=== PATIENT | male | born 1980 | race Asian ===

== ENCOUNTER 2023-05-05 16:16 | Emergency (ER) | payer MEDICARE, MEDICAID, SELFPAY ==
[2023-05-05 16:54] VITALS: BP 109/68
[2023-05-05 19:56] LABS: Urine Albumin Negative (Neg - Trace); Urine Bilirubin Negative (Negative); Urine Character Clear (Clear); Urine Color Yellow; Urine Glucose Negative (Negative); Urine Ketone Negative (Negative); Urine Leukocyte Negative (Negative); Urine Nitrite Negative (Negative); Urine Occult Blood 3+ (Negative); Urine Urobilinogen 1+ (Neg - 1+)
[2023-05-05 20:04] LABS: Urine Red Blood Cell 30-40 /HPF (0-2); Urine White Cell None Seen /HPF (0-5)
[2023-05-05 20:25] VITALS: BP 109/68
--- NOTE | 2023-05-05 23:09 | ED.GENMED ---
History of Present Illness
General
Chief Complaint: Urinary Symptoms
Source: family
Exam Limitations: none
Time Seen by Provider: 05/05/23 18:07
Nursing documentation reviewed up to this point in time: agreed with
Travel History
Have you had any contact with someone who has COVID-19?: No
Do you have any symptoms of coronavirus? Fever > 100 degrees, chills, cough, shortness of breath, sore throat, loss of taste or smell, muscle aches, or headache?: No
History of Present Illness
History of Present Illness:
Caregiver noted blood in urine yesterday. Concerned that he has a UTI. No fever/chills. Brought to ED by family for eval. No other complaints.
Past History
Past History
ED Past Medical History: Seizures, Psychiatric (MR, developmental delay) and Other (Pneumonia at the age of 18)
ED Past Surgical History: Other (Muscle biopsy, Vagal nerve stimulator was placed for couple of years and was removed 15 years ago.)
Patient has exhibited threatening behavior?: No
Social History
Tobacco: Non-smoker
Alcohol: None
Drug: None
Personal: Single
Living: other (residential facility)
Review of Systems
Review of Systems
Allergies reviewed?: Yes
All Other Systems: ROS reviewed and negative except as documented in HPI and ROS
Constitutional: Reports no symptoms
EENT: Reports no symptoms
Respiratory: Reports no symptoms
Cardiac: Reports no symptoms
ABD/GI: Reports no symptoms
: Reports bleeding
Musculoskeletal: Reports no symptoms
Skin: Reports no symptoms
Neurological: Reports no symptoms
Psychiatric: Reports no symptoms
Phy Exam
General Physical Exam
General Presentation: no apparent distress
General age: appears stated age
General Skin: warm and dry
General Habitus: normal
Gastrointestinal Exam
Gastrointestinal Exam: non tender and soft
Genitourinary Exam Male
Exam Male: circumcised and other (Small abraded area on underside of penis. No active bleeding noted. No blood expressed from penis.)
Musculoskeletal Exam
Musculoskeletal Exam: neuro vasc intact
Skin Exam
Skin Exam: normal color, warm/dry and no rash
Psychiatric Exam
Psychiatric Exam: normal mood/affect
Course
Orders/Labs/Results
Orders:
Orders
05/05/23 19:42
Urinalysis Reflex To Culture Urgent
Date Specimen was Collected: 05/05/23
Time Specimen was Collected: 19:40
Urine Microscopic Reflex Cult Urgent
Urine Culture Urgent
MIRIAM Source: U
Specimen Description:
Date Specimen was Collected: 05/05/23
Time Specimen was Collected: 19:40
Comment: ADD ON
05/05/23 20:19
Add On- LAB Urgent
Tests Added?: Urine C&S
Abnormal Lab Results
05/05/23
19:42
Ur Occult Blood Reflex 3+ A
(Negative)
Urine RBC 30-40 A /HPF
(0-2)
Vital Signs
Initial and Last Documented VS:
Initial Vital Signs
Pulse Resp BP Pulse Ox
65 20 109/68 99
05/05/23 16:54 05/05/23 16:54 05/05/23 16:54 05/05/23 16:54
Last Documented Vital Signs
Pulse Resp BP Pulse Ox
65 20 109/68 99
05/05/23 16:54 05/05/23 16:54 05/05/23 20:25 05/05/23 20:25
*Critical Care Note
Total Time (30-74mins, 75-104mins- exclusive of procedures): Not Applicable
Update Note
Update Note:
Urine neg for UTI. No active bleeding noted in dept. Urine clear yellow. SMall abrasion noted on underside of tip of penis. ?bleeding source? Discussed findings with family. LPatient is discharged home. Father given instructions on s/s to
return to ED. He is agreeable to plan. Given number for urology follow up .
ED Attending Note
-
Portions of this chart may have been created with voice recognition software.� Occasional wrong word or��sound alike� substitutions may have occurred due to the inherent limitations of voice recognition software.
Discharge Plan
Departure
Patient Disposition: Home (Routine Discharge)
Date of Disposition: 05/05/23
Time of Disposition: 20:20
Patient with high blood pressure during this ER visit?: No
Condition: Good
Covid-19: Not Applicable
Discharge Problem:
Hematuria
Instructions: Blood in the Urine (Hematuria), Adult (DC)
Prescriptions:
No Action
acetaminophen [Tylenol] 325 mg Tablet
650 mg PO Q6HPRN PRN (Reason: mild pain)
felbamate [Felbatol] 400 mg Tablet
800 mg PO BID
therapeutic multivitamin Tablet
1 tab PO DAILY
melatonin 3 mg Tablet
3 mg PO HS PRN (Reason: sleep)
dextromethorphan-guaifenesin [Siltussin-DM] 10-100 mg/5 mL Syrup
10 ml PO Q4HPRN PRN (Reason: cough)
zonisamide [Zonegran] 100 mg Capsule
200 mg PO BID
lorazepam 0.5 mg Tablet
1 mg PO DAILYPRN PRN (Reason: prior to ct scan)
ascorbic acid (vitamin C) [Vitamin C] 500 mg Tablet
500 mg PO DAILY
esomeprazole magnesium [Nexium] 40 mg Capsule,Delayed Release(Dr/Ec)
40 mg PO DAILY
fluticasone propionate 50 mcg/actuation [place],Suspension
1 spray INTRANASAL HS
Ensure Liquid
1 ea PO QPM
clobazam [Onfi] 20 mg Tablet
20 mg PO BID
Dulcolax Soft Chews
1 tab PO BIDPRN PRN (Reason: constipation)
polyethylene glycol 3350 17 gram Powder In Packet
17 g PO DAILY Qty: 30 0RF
cefuroxime axetil 500 mg tablet
500 mg PO BID 7 Days Qty: 14 0RF
Referrals:
Jabier Chen MD [Active] - Next open appointment
UNKNOWN - PT DOES,NOT KNOW [Family Provider] -
Interventions
Interventions:
*Risk Screen - Suicide Last Done: 05/05/23 18:31
*General Assessment Last Done: 05/05/23 18:31
*Neglect/Abuse Screening Last Done: 05/05/23 18:31
ED- Fall Risk Assessment Last Done: 05/05/23 18:31
*ED COVID-19 Vaccine History Last Done: 05/05/23 18:31
*Nursing Disposition Last Done: 05/05/23 20:25
ED-Male Genitourinary Assessment Last Done: 05/05/23 18:31
Discharge Date and Time
Discharge Date/Time: 05/05/23 20:26
== END 2023-05-05 20:26 | disposition home or self-care (01) ==
LOC: EMR 16:16
PROVIDERS: Nurse Practitioner; EMERGENCY PHYSICIAN Student in an Organized Health Care Education/Training Program
DX: R31.9 Hematuria, unspecified (principal); S30.812A Abrasion of penis, initial encounter; X58.XXXA Exposure to other specified factors, initial encounter
CPT/HCPCS: 99282; 81003; 81015; 87086

== ENCOUNTER 2023-08-08 10:42 | Emergency (ER) | payer MEDICARE, MEDICAID, SELFPAY ==
[2023-08-08 10:52] VITALS: BP 127/99
--- NOTE | 2023-08-08 11:55 | ED.SKININJ ---
HPI-Injury
General
Chief Complaint: Skin Problem
Time Seen by Provider: 08/08/23 11:12
Travel History
Have you had any contact with someone who has COVID-19?: No
Do you have any symptoms of coronavirus? Fever > 100 degrees, chills, cough, shortness of breath, sore throat, loss of taste or smell, muscle aches, or headache?: No
History of Present Illness-Injury
Initial Injury comments:
Patient is a 42-year-old male with past medical history of intellectual disability and developmental delay and history of seizure disorder here today with father and caregiver for evaluation after the patient sustained a fall just prior to arrival.
Patient was taking his clothes off and accidentally tripped striking his head against the ground. No loss of consciousness. He sustained a laceration just inferiorly and laterally to his left eyebrow. Patient is up-to-date on vaccinations. No
injuries noted elsewhere.
Past History
Past History
ED Past Medical History: Seizures, Psychiatric (MR, developmental delay) and Other (Pneumonia at the age of 18)
ED Past Surgical History: Other (Muscle biopsy, Vagal nerve stimulator was placed for couple of years and was removed 15 years ago.)
Patient has exhibited threatening behavior?: No
Social History
Tobacco: Non-smoker
Alcohol: None
Drug: None
Personal: Single
Living: other (residential facility)
Review of Systems
Review of Systems
All Other Systems: ROS reviewed and negative except as documented in HPI and ROS
Phy Exam
Physical Exam
Physical Exam:
GENERAL: Alert , in no apparent distress
HEAD: There is a small superficial approximately 2 cm in diameter horizontal linear laceration noted just inferiorly and laterally to the left eyebrow, there is no evidence of foreign body, no active bleeding, there is no tenderness around the
laceration, no deformities or step-offs appreciated
EYE: pupils equal and reactive to light, extraocular movements intact, no restrictions, there is no evidence of ocular trauma
NECK: Supple, no significant adenopathy.
ENT: o/p clr, mmm.
CARDIAC: Regular rate and rhythm .
LUNGS: Clear breath sounds bilaterally, no acute respiratory distress, no wheezes/rales/rhonchi
NEUROLOGICAL: Alert and oriented, no focal neuro deficits, moving all extremities
SKIN: Warm and dry, skin intact.
MUSCULOSKELETAL: No edema, well perfused.
Course
Vital Signs
Initial and Last Documented VS:
Initial Vital Signs
Temp Pulse Resp BP Pulse Ox
98.1 F 70 18 127/99 98
08/08/23 10:52 08/08/23 10:52 08/08/23 10:52 08/08/23 10:52 08/08/23 10:52
Last Documented Vital Signs
Temp Pulse Resp BP Pulse Ox
98.1 F 70 18 127/99 98
08/08/23 10:52 08/08/23 10:52 08/08/23 10:52 08/08/23 10:52 08/08/23 10:52
Procedures
Laceration Closure
Left eyebrow, inferior and lateral aspect:
Status of Wound: clean
Size of Wound in cm: 2
Description of Wound Edges: sharp
Preparation: cleaned with saline
Type of Closure: Dermabond-skin glue (3 layers in total)
Additional information:
Achieved good wound approximation. No bleeding.
MDM/Problems Addressed
Differential Diagnosis Includes:
Patient is a 42-year-old male with past medical history of intellectual disability and developmental delay and history of seizure disorder here today with father and caregiver for evaluation of a laceration after the patient sustained a fall just
prior to arrival. Overall, patient appears well. No evidence of ocular injury. No findings of intracranial injury. Patient neurologically intact. Laceration was copiously irrigated and repaired with Dermabond, see procedure note for full details.
Patient tolerated procedure well. Discussed wound care/infection precautions. Recommend supportive care and close follow-up. All questions answered. Stable for discharge.
*Critical Care Note
Total Time (30-74mins, 75-104mins- exclusive of procedures): Not Applicable
ED Attending Note
-
Portions of this chart may have been created with voice recognition software.� Occasional wrong word or��sound alike� substitutions may have occurred due to the inherent limitations of voice recognition software.
Discharge Plan
Departure
Patient Disposition: Home (Routine Discharge)
Date of Disposition: 08/08/23
Time of Disposition: 12:12
Patient with high blood pressure during this ER visit?: No
Condition: Good
Covid-19: Not Applicable
Discharge Problem:
Laceration of left eyebrow
Instructions: Laceration Repair With Glue ED
Prescriptions:
New
acetaminophen [Tylenol] 325 mg tablet
650 mg PO Q6H PRN (Reason: Pain) 3 Days Qty: 24 0RF
No Action
acetaminophen [Tylenol] 325 mg Tablet
650 mg PO Q6HPRN PRN (Reason: mild pain)
felbamate [Felbatol] 400 mg Tablet
800 mg PO BID
therapeutic multivitamin Tablet
1 tab PO DAILY
melatonin 3 mg Tablet
3 mg PO HS PRN (Reason: sleep)
dextromethorphan-guaifenesin [Siltussin-DM] 10-100 mg/5 mL Syrup
10 ml PO Q4HPRN PRN (Reason: cough)
zonisamide [Zonegran] 100 mg Capsule
200 mg PO BID
lorazepam 0.5 mg Tablet
1 mg PO DAILYPRN PRN (Reason: prior to ct scan)
ascorbic acid (vitamin C) [Vitamin C] 500 mg Tablet
500 mg PO DAILY
esomeprazole magnesium [Nexium] 40 mg Capsule,Delayed Release(Dr/Ec)
40 mg PO DAILY
fluticasone propionate 50 mcg/actuation [place],Suspension
1 spray INTRANASAL HS
Ensure Liquid
1 ea PO QPM
clobazam [Onfi] 20 mg Tablet
20 mg PO BID
Dulcolax Soft Chews
1 tab PO BIDPRN PRN (Reason: constipation)
polyethylene glycol 3350 17 gram Powder In Packet
17 g PO DAILY Qty: 30 0RF
cefuroxime axetil 500 mg tablet
500 mg PO BID 7 Days Qty: 14 0RF
Referrals:
UNKNOWN - PT DOES,NOT KNOW [Family Provider] -
Activity Restrictions/Additional Instructions:
You were seen today for evaluation after you sustained a laceration to your left eyebrow.
We cleaned and irrigated your wound.
Your wound was repaired with glue. Keep the glue dry for the first 24 to 48 hours. Afterwards, you may get the glue wet but do not soak the wound.
Keep an eye out for signs of infection, including but not limited to, redness, swelling, pus, drainage, and/or fevers.
Follow-up with your doctor within the next 3 to 5 days for close reevaluation.
Return for any new, worsening, or concerning symptoms.
Interventions
Interventions:
*Risk Screen - Suicide Last Done: 08/08/23 10:52
*General Assessment Last Done: 08/08/23 10:52
*Neglect/Abuse Screening Last Done: 08/08/23 10:52
ED- Fall Risk Assessment Last Done: 08/08/23 12:26
*ED COVID-19 Vaccine History Last Done: 08/08/23 12:26
*Nursing Disposition Last Done: 08/08/23 12:26
ED-Skin Assessment Last Done: 08/08/23 12:31
Discharge Date and Time
Discharge Date/Time: 08/08/23 12:32
Print Language: POLISH
== END 2023-08-08 12:32 | disposition home or self-care (01) ==
LOC: EMR 10:42
PROVIDERS: EMERGENCY PHYSICIAN Student in an Organized Health Care Education/Training Program
DX: S01.112A Laceration without foreign body of left eyelid and periocular area, initial encounter (principal); W01.0XXA Fall on same level from slipping, tripping and stumbling without subsequent striking against object, initial encounter; G40.909 Epilepsy, unspecified, not intractable, without status epilepticus; F79 Unspecified intellectual disabilities
CPT/HCPCS: 99283; 12051

== ENCOUNTER → 2023-08-29 09:42 | Outpatient (REF) | payer MEDICARE, MEDICAID, SELFPAY ==
[2023-08-29 12:46] LABS: % Basophils 0.5 % (0-2); % Immature Granulocytes 0.3 % (0-0.5); % Lymphocytes 38.7 % (20.5-51.1); % Monocytes 8.9 % (1.7-9.3); % Neutrophils 49.6 % (42.2-75.2); Absolute Eosinophils 0.1 10^3/uL (0-0.7); Absolute Lymphocytes 1.5 10^3/uL (1.2-3.4); Absolute Monocytes 0.4 10^3/uL (0.1-0.6); Hematocrit 41.6 % (39.0-52.0); Hemoglobin 13.7 g/dL (13.0-18.0); Mean Corp Hgb Conc. 32.9 g/dL (33.0-37.0); Mean Corpuscular Hgb 33.5 pg (27.0-31.0); Mean Corpuscular Volume 101.7 fL (80.0-94.0); Mean Platelet Volume 9.4 fL (7.4-10.4); Nucleated Red Blood Cells % 0 % (-); Platelet Count 201 10^3/uL (130-400); Red Blood Cell Count 4.09 10^6/uL (4.70-6.10); Red Cell Dist. Width 12.2 % (11.5-14.5); White Blood Cell Count 3.9 10^3/uL (4.8-10.8)
[2023-08-29 13:52] LABS: ALT (SGPT) 28 U/L (0-50); AST (SGOT) 38 U/L (17-59); Albumin 4.4 g/dl (3.5-5.0); Alkaline Phosphatase 73 U/L (38-126); Blood Urea Nitrogen 15 mg/dl (9-20); Calcium 9.5 mg/dl (8.4-10.2); Carbon Dioxide 24 mmol/L (22-30); Chloride 104 mmol/L (98-107); Glucose 85 mg/dl (70-99); HDL Cholesterol 109 mg/dl; LDL Cholesterol, Calculated 83 mg/dl; Potassium 4.1 mmol/L (3.5-5.1); Sodium 137 mmol/L (135-145); Total Bilirubin 0.6 mg/dl (0.2-1.3); Total Cholesterol 203 mg/dl (50-199); Total Protein 7.4 g/dl (6.3-8.2); Triglyceride 55 mg/dl (10-149); Very Low Density Lipoprotein 11 mg/dl (0-30); eGFR > 60.00
[2023-08-29 14:12] LABS: TSH 0.89 uIU/ml (0.47-4.68)
[2023-08-29 15:23] LABS: Urine Albumin Negative (Neg - Trace); Urine Bilirubin Negative (Negative); Urine Character Clear (Clear); Urine Color Yellow; Urine Glucose Negative (Negative); Urine Ketone Negative (Negative); Urine Leukocyte Negative (Negative); Urine Nitrite Negative (Negative); Urine Occult Blood Negative (Negative); Urine Specific Gravity 1.005 (<1.030); Urine Urobilinogen Negative (Neg - 1+)
== END ==
LOC: RAD 09:42
PROVIDERS: ATTENDING PHYSICIAN Specialist; FAMILY PHYSICIAN Internal Medicine
DX: R31.0 Gross hematuria (principal); Z02.89 Encounter for other administrative examinations; Z00.00 Encounter for general adult medical examination without abnormal findings; G40.909 Epilepsy, unspecified, not intractable, without status epilepticus; R31.9 Hematuria, unspecified; Z13.220 Encounter for screening for lipoid disorders; F79 Unspecified intellectual disabilities; Z79.899 Other long term (current) drug therapy
CPT/HCPCS: 36415; 76770; 80053; 80061; 81003; 84443; 85025; 87086; 93005

== ENCOUNTER 2023-10-26 17:43 | Emergency (ER) | payer MEDICARE, MEDICAID, SELFPAY ==
[2023-10-26 17:46] VITALS: BP 105/73
[2023-10-26 19:38] LABS: Urine Albumin Negative (Neg - Trace); Urine Bilirubin Negative (Negative); Urine Character Clear (Clear); Urine Color Yellow; Urine Glucose Negative (Negative); Urine Ketone Negative (Negative); Urine Leukocyte Negative (Negative); Urine Nitrite Negative (Negative); Urine Occult Blood 3+ (Negative); Urine Specific Gravity 1.015 (<1.030); Urine Urobilinogen Negative (Neg - 1+)
[2023-10-26 19:53] LABS: Urine Red Blood Cell 26-30 /HPF (0-2); Urine White Cell 0-2 /HPF (0-5)
--- NOTE | 2023-10-26 20:44 | ED.GENMED ---
History of Present Illness
General
Chief Complaint: Male Genito-Urinary Symptoms
Time Seen by Provider: 10/26/23 18:32
History of Present Illness
History of Present Illness:
43-year-old male with history of developmental delay presents to the emergency department with his in-home communications maintainer for evaluation of hematuria. Blood was noted in the front of his underwear today. The patient offers no complaints. Crossbar Switch Adjuster
denies any possibility of trauma
Past History
Past History
ED Past Medical History: Seizures, Psychiatric (MR, developmental delay) and Other (Pneumonia at the age of 18)
ED Past Surgical History: Other (Muscle biopsy, Vagal nerve stimulator was placed for couple of years and was removed 15 years ago.)
Patient has exhibited threatening behavior?: No
Social History
Tobacco: Non-smoker
Alcohol: None
Drug: None
Personal: Single
Living: other (residential facility)
Review of Systems
Review of Systems
Allergies reviewed?: Yes
All Other Systems: ROS reviewed and negative except as documented in HPI and ROS
Phy Exam
Physical Exam
Physical Exam:
GEN: Well appearing, NAD, WDWN
HEENT: Oral mucosa moist, no scleral icterus
Cardiac: Regular rate
Lung: No respiratory distress, no tachypnea
MSK: No gross deformity or injuries
: Blood at the urethral meatus, no evidence for penile swelling or testicular swelling
Skin: Good color, no pallor or jaundice, no rashes
Neuro: AO x3, moves all extremities freely
Psych: Calm, cooperative
Course
Orders/Labs/Results
Orders:
Orders
10/26/23 19:23
Urinalysis Reflex To Culture Urgent
Date Specimen was Collected: 10/26/23
Time Specimen was Collected: 19:20
Urine Microscopic Reflex Cult Urgent
Urine Culture Urgent
MIRIAM Source: U
Specimen Description:
Date Specimen was Collected: 10/26/23
Time Specimen was Collected: 19:20
Comment: ADD ON
10/26/23 19:58
CT Abd/pel Without Iv Or Oral Urgent
Comment:
Reason For Exam: hematuria
10/26/23 21:35
Add On - Microbiology Urgent
Tests Added?: urine culture
Abnormal Lab Results
10/26/23
19:23
Ur Occult Blood Reflex 3+ A
(Negative)
Urine RBC 26-30 A /HPF
(0-2)
Vital Signs
Initial and Last Documented VS:
Initial Vital Signs
Temp Pulse Resp BP Pulse Ox
97.8 F 74 18 105/73 97
10/26/23 17:46 10/26/23 17:46 10/26/23 17:46 10/26/23 17:46 10/26/23 17:46
Last Documented Vital Signs
Temp Pulse Resp BP Pulse Ox
97.8 F 74 18 105/73 97
10/26/23 17:46 10/26/23 17:46 10/26/23 17:46 10/26/23 17:46 10/26/23 17:46
MDM/Problems Addressed
MDM/Problems Addressed:
Hematuria noted on urinalysis, will send for culture although initial UA does not look infected. CT obtained showing no evidence for obstructive uropathy. No antibiotics will be initiated at this time given lack of strong findings on UA.
Recommend outpatient urology follow-up if hematuria does not resolve for cystoscopy
*Critical Care Note
Total Time (30-74mins, 75-104mins- exclusive of procedures): Not Applicable
ED Attending Note
-
Portions of this chart may have been created with voice recognition software.� Occasional wrong word or��sound alike� substitutions may have occurred due to the inherent limitations of voice recognition software.
Discharge Plan
Departure
Patient Disposition: Home (Routine Discharge)
Date of Disposition: 10/26/23
Time of Disposition: 21:36
Patient with high blood pressure during this ER visit?: No
Discharge Problem:
Gross hematuria
Prescriptions:
No Action
acetaminophen [Tylenol] 325 mg Tablet
650 mg PO Q6HPRN PRN (Reason: mild pain)
felbamate [Felbatol] 400 mg Tablet
800 mg PO BID
therapeutic multivitamin Tablet
1 tab PO DAILY
melatonin 3 mg Tablet
3 mg PO HS PRN (Reason: sleep)
dextromethorphan-guaifenesin [Siltussin-DM] 10-100 mg/5 mL Syrup
10 ml PO Q4HPRN PRN (Reason: cough)
zonisamide [Zonegran] 100 mg Capsule
200 mg PO BID
lorazepam 0.5 mg Tablet
1 mg PO DAILYPRN PRN (Reason: prior to ct scan)
ascorbic acid (vitamin C) [Vitamin C] 500 mg Tablet
500 mg PO DAILY
esomeprazole magnesium [Nexium] 40 mg Capsule,Delayed Release(Dr/Ec)
40 mg PO DAILY
fluticasone propionate 50 mcg/actuation [place],Suspension
1 spray INTRANASAL HS
Ensure Liquid
1 ea PO QPM
clobazam [Onfi] 20 mg Tablet
20 mg PO BID
Dulcolax Soft Chews
1 tab PO BIDPRN PRN (Reason: constipation)
polyethylene glycol 3350 17 gram Powder In Packet
17 g PO DAILY Qty: 30 0RF
cefuroxime axetil 500 mg tablet
500 mg PO BID 7 Days Qty: 14 0RF
acetaminophen [Tylenol] 325 mg tablet
650 mg PO Q6H PRN (Reason: Pain) 3 Days Qty: 24 0RF
Referrals:
Collin Romero MD [Active] -
Dima Bianchi MD [Family Provider] -
Activity Restrictions/Additional Instructions:
Because of the blood in the urine is not clear at this time. A urine culture is pending and will result in 2 to 3 days, if this is positive we will call and start antibiotics
Please follow-up with the urologist listed on your paperwork as a camera may need to be inserted into the bladder to determine the source of the bleeding
Interventions
Interventions:
*Risk Screen - Suicide Last Done: 10/26/23 20:03
*General Assessment Last Done: 10/26/23 20:03
*Neglect/Abuse Screening Last Done: 10/26/23 20:03
ED- Fall Risk Assessment Last Done: 10/26/23 22:05
*Nursing Disposition Last Done: 10/26/23 22:05
ED-Male Genitourinary Assessment Last Done: 10/26/23 20:03
Discharge Date and Time
Discharge Date/Time: 10/26/23 22:06
Print Language: AZERI
== END 2023-10-26 22:06 | disposition home or self-care (01) ==
LOC: EMR 17:43
PROVIDERS: Physician Assistant; EMERGENCY PHYSICIAN Emergency Medicine; FAMILY PHYSICIAN Internal Medicine
DX: R31.0 Gross hematuria (principal); R56.9 Unspecified convulsions; F79 Unspecified intellectual disabilities; Z87.01 Personal history of pneumonia (recurrent)
CPT/HCPCS: 99284; 74176; 81003; 81015; 87086

== ENCOUNTER 2023-12-26 22:44 | Inpatient (IN) | payer MEDICARE, MEDICAID, SELFPAY ==
[2023-12-26] VITALS (7 sets, daily range): BP systolic 100–128; BP diastolic 69–93; BMI 22.0
--- NOTE | 2023-12-26 18:41 | ED.GENMED ---
History of Present Illness
General
Chief Complaint: Abnormal Lab Value
Time Seen by Provider: 12/26/23 18:41
History of Present Illness
History of Present Illness:
HPI: Bloody urine for months, wanted to do bladder bx, but Dr. Osorio wanted blood work first which was performed this morning. He was sent here due to abnormal LFTs. He is reportedly at his baseline mental status and is currently nonverbal.
There was worsening weakness as well as decreased oral intake over the past week.
EXAM:
GENERAL: Does not appear to be in any distress, he is interacting with his iPad
HEENT: Slightly dry oral mucosa
CARDIOVASCULAR: No murmurs, normal heart rate, regular rhythm, No chest wall tenderness
PULMONARY: No respiratory distress, breath sounds are clear and equal
ABDOMEN: Soft with no peritoneal signs, no tenderness
NEUROLOGIC: The patient does not appear to have any motor deficits however is nonverbal
PSYCHIATRIC: Nonverbal
EXTREMITIES: Nontender, no edema, moves all extremities equally
SKIN: No rash, no lesions
TIME OF INITIAL ENCOUNTER: 7 PM
NUMBER AND COMPLEXITY OF PROBLEMS ADDRESSED AT THE ENCOUNTER
� Chronic conditions affecting care: Developmental delay, hematuria
� Acute Exacerbation and/or Progression of Chronic Illness: This is an acute problem
� Differential Diagnosis includes: Viral syndrome, cholecystitis, biliary colic, medication related
AMOUNT AND/OR COMPLEXITY OF DATA TO BE REVIEWED AND ANALYZED
� I performed an independent evaluation of and my interpretation is:
EKG:
CT:
X-rays:
Laboratory Studies: Lab work from earlier this morning show a white count of 4.6 which is near baseline, hemoglobin 14.7 which is improved compared to prior, AST 541, ALT 124, alk phos normal, Tylenol level undetected
Other:
� Review of other/old records: Labs from August showed normal transaminases
� Clinical information was obtained by an independent historian: I spoke to staff at his facility at bedside
� Prescriptions/Medications Considered but not given:
� Further testing considered but not performed:
RISK OF COMPLICATIONS AND/OR MORBIDITY OR MORTALITY OF PATIENT MANAGEMENT
� Social determinants of health affecting care: Resides at some sort of long-term care facility in [place]
� Discussion with other providers: I discussed the transaminase elevations with Dr. Matt and she recommends checking CK as well as hepatitis panel. CK markedly elevated.
� Escalation of care including admission/observation vs risk of discharge considered: Patient has new transaminase elevation but normal total bili and normal white count. He has no abdominal tenderness. As CK is markedly
elevated, 2 L of IV fluids have been ordered., Tylenol level undetected. Will admit patient for rhabdomyolysis.
Past History
Past History
ED Past Medical History: Seizures, Psychiatric (MR, developmental delay) and Other (Pneumonia at the age of 18)
ED Past Surgical History: Other (Muscle biopsy, Vagal nerve stimulator was placed for couple of years and was removed 15 years ago.)
Patient has exhibited threatening behavior?: No
Social History
Tobacco: Non-smoker
Alcohol: None
Drug: None
Personal: Single
Living: other (residential facility)
Phy Exam
Physical Exam
Physical Exam:
See HPI
Course
Orders/Labs/Results
Orders:
Orders
12/26/23 18:41
US Abdomen Complete/Upper Urgent
Comment:
Reason For Exam: new transaminase elevation
12/26/23 20:32
Acetaminophen Urgent
Basic Metabolic Panel Urgent
Creatine Phosphokinase Urgent
Hepatitis A IgM Antibody Urgent
Hepatitis B Core Ab, IgM Urgent
Hepatitis B Surface Antibody Urgent
Hepatitis B Surface Antigen Urgent
Hepatitis C Antibody Urgent
Doodz-Vfev-Wjqkywk Urgent
Comment: ADD ON
Magnesium Urgent
Comment: ADD ON
Phosphorus Urgent
Comment: ADD ON
Prothrombin Time Urgent
12/26/23 21:23
Add On- LAB Urgent
Tests Added?: LFTs (repeat tonight; had this am)
12/26/23 21:25
Add On- LAB Urgent
Tests Added?: mg, phos
0.9% Sodium Chloride 1000 ml [Nss] 1,000 ml IV BOLUS
0.9% Sodium Chloride 500 ml [Nss] 500 ml IV BOLUS
Abnormal Lab Results
12/26/23
20:32
BUN 28 H mg/dl
(9-20)
Glucose 101 H mg/dl
(70-99)
Creatine Kinase 9707 H U/L
(55-170)
Acetaminophen < 10 L ug/ml
(10-30)
12/26/23 20:32
Vital Signs
Initial and Last Documented VS:
Initial Vital Signs
Temp Pulse Resp BP Pulse Ox
97.6 F 61 18 102/69 96
12/26/23 18:04 12/26/23 18:04 12/26/23 18:04 12/26/23 18:04 12/26/23 18:04
Last Documented Vital Signs
Temp Pulse Resp BP Pulse Ox
97.6 F 69 11 111/86 97
12/26/23 18:04 12/26/23 21:30 12/26/23 21:30 12/26/23 21:00 12/26/23 21:30
*Critical Care Note
Total Time (30-74mins, 75-104mins- exclusive of procedures): Not Applicable
ED Attending Note
-
Portions of this chart may have been created with voice recognition software.� Occasional wrong word or��sound alike� substitutions may have occurred due to the inherent limitations of voice recognition software.
Discharge Plan
Departure
Prescriptions:
No Action
acetaminophen [Tylenol] 325 mg Tablet
650 mg PO Q6HPRN PRN (Reason: mild pain)
felbamate [Felbatol] 400 mg Tablet
800 mg PO BID
therapeutic multivitamin Tablet
1 tab PO DAILY
zonisamide [Zonegran] 100 mg Capsule
200 mg PO BID
ascorbic acid (vitamin C) [Vitamin C] 500 mg Tablet
500 mg PO DAILY
fluticasone propionate 50 mcg/actuation [place],Suspension
1 spray INTRANASAL HS
Ensure Liquid
1 ea PO QPM
clobazam [Onfi] 20 mg Tablet
30 mg PO BID
polyethylene glycol 3350 17 gram Powder In Packet
17 g PO DAILY Qty: 30 0RF
Referrals:
Dima Bianchi MD [Family Provider] -
Interventions
Interventions:
*Risk Screen - Suicide Last Done: 12/26/23 18:04
*General Assessment Last Done: 12/26/23 18:04
*Neglect/Abuse Screening Last Done: 12/26/23 18:04
ED- Fall Risk Assessment Last Done: 12/26/23 19:02
*ED COVID-19 Vaccine History Last Done: 12/26/23 18:04
Discharge Date and Time
Print Language: [id number]
[2023-12-26 20:54] LABS: INR 1.06; PT 13.6 Sec (11.4-14.6)
[2023-12-26 21:06] LABS: Acetaminophen < 10 ug/ml (10-30); Blood Urea Nitrogen 28 mg/dl (9-20); Calcium 9.3 mg/dl (8.4-10.2); Carbon Dioxide 25 mmol/L (22-30); Chloride 104 mmol/L (98-107); Glucose 101 mg/dl (70-99); Potassium 4.2 mmol/L (3.5-5.1); Sodium 139 mmol/L (135-145); eGFR > 60.00
[2023-12-26 21:16] LABS: Creatine Phosphokinase 9707 U/L (55-170)
[2023-12-26] MEDS: NSS 1000 IV ×2 (21:37→23:57)
[2023-12-26 22:08] LABS: ALT (SGPT) 115 U/L (0-50); AST (SGOT) 400 U/L (17-59); Albumin 4.3 g/dl (3.5-5.0); Alkaline Phosphatase 72 U/L (38-126); Direct Bilirubin 0.3 mg/dl (0.0-0.4); Magnesium 1.9 mg/dl (1.6-2.3); Phosphorus 3.4 mg/dl (2.5-4.5); Total Bilirubin 0.5 mg/dl (0.2-1.3); Total Protein 6.9 g/dl (6.3-8.2)
[2023-12-26] MEDS: NSS 500 IV (22:09)
--- NOTE | 2023-12-26 22:33 | HPS.HSE ---
Family Physician
-
Family Physician: Dima Bianchi
Chief Complaint
-
elevated liver enzymes
History of Present Illness
43-year-old male past medical history of development delay nonverbal at baseline, BPH, seizures, presenting from correction with few isolated episodes of bloody urine over the past few months. He saw Dr. Osorio of urology who wanted to check blood
work before considering bladder biopsy. He was sent in for abnormal LFTs.
History is obtained from patient's mother at bedside who states that patient has been feeling more tired for the past several weeks, eating less.
He has a history of seizure disorder and his last seizure was 4 months ago secondary to fever. He has been on the same seizure medications for several years without any recent changes in the doses.
No smoking or alcohol use.
Medical History
Past Medical History
Past Medical History: Reports Other (development delay nonverbal at baseline, BPH, seizures)
Past Surgical History: Reports None
Social History
Tobacco: Non-smoker
Alcohol: None
Drug: None
Family History
Family History: Not pertinent
Allergies / Home Medications
Allergies reflects when Allergies were last updated in [facility].
Home Medications with original date entered in [facility]
Allergy/Medication List:
Allergies
Allergy/AdvReac Type Severity Reaction Status Date / Time
No Known Allergies Allergy Verified 12/26/23 18:06
Home Medications
acetaminophen 325 mg tablet (Tylenol) 650 mg PO Q6HPRN PRN mild pain/temp >100.4 06/22/22
ascorbic acid (vitamin C) 500 mg tablet (Vitamin C) 500 mg PO DAILY Supplement 06/22/22
clobazam 20 mg tablet (Onfi) 30 mg PO BID Seizures 06/22/22
felbamate 400 mg tablet (Felbatol) 800 mg PO BID Seizures 06/22/22
fluticasone propionate 50 mcg/actuation nasal spray,suspension 1 spray intranasal HS Congestion 06/22/22
therapeutic multivitamin 1 tab PO DAILY Supplement 06/22/22
zonisamide 100 mg capsule (Zonegran) 200 mg PO BID Seizures 06/22/22
polyethylene glycol 3350 17 gram oral powder packet 17 g PO DAILY #30 ea 06/27/22
carboxymethylcellulose sodium 0.5 % eye drops (Refresh Tears) 1 drp BOTH EYES DAILY 12/26/23
clotrimazole 1 % topical cream 1 applic topical BID right ear 12/26/23
dextromethorphan-guaifenesin 10 mg-100 mg/5 mL oral syrup 10 ml PO Q4HPRN PRN cough 12/26/23
melatonin 3 mg tablet 3 mg PO HSPRN PRN sleep 12/26/23
Review of Systems
-
History Source: Patient
A 12 point ROS was completed and negative except as noted: Yes
Constitutional: Reports No Symptoms
EENT: Reports No Symptoms
Respiratory: Reports No Symptoms
Cardiac: Reports No Symptoms
Abdomen/GI: Reports No Symptoms
: Reports No Symptoms
Musculoskeletal: Reports No Symptoms
Skin: Reports No Symptoms
Neurological: Reports No Symptoms
Endocrine: Reports No Symptoms
Hematologic/Lymphatic: Reports No Symptoms
Psych: Reports No Symptoms
Physical Exam
Vital Signs
Vital Signs
Temp Pulse Resp BP Pulse Ox
97.6 F 62 11 118/73 97
12/26/23 18:04 12/26/23 22:15 12/26/23 22:15 12/26/23 22:00 12/26/23 22:00
Physical Exam
General: Well Developed, Well Nourished and No Apparent Distress
HEENT: NormoCephalic, Moist mucous membranes and Atraumatic
Respiratory: Clear
Cardiac: S1/S2 and Regular Rhythm; No Murmur or Rub
GI: Soft, Non Tender, Non Distended and Normal Bowel Sounds; No Organomegaly
Rectal: Deferred by Provider
Musculoskeletal: No Clubbing, No Cyanosis and No Edema
Skin: No Rash
Neuro: Nonfocal/grossly intact
Laboratory Results
-
12/26/23 20:32
Laboratory Results
PT 13.6 Sec (11.4-14.6) 12/26/23 20:32
INR 1.06 12/26/23 20:32
Total Bilirubin 0.5 mg/dl (0.2-1.3) 12/26/23 20:32
AST 400 U/L (17-59) H 12/26/23 20:32
ALT 115 U/L (0-50) H 12/26/23 20:32
Alkaline Phosphatase 72 U/L (38-126) 12/26/23 20:32
Data Reviewed
-
Lab Data: Labs Reviewed by me
Old Records: Reviewed
Impression/Plan
-
IMPRESSION:
PLAN:
# Red urine secondary to rhabdomyolysis unclear etiology
-CK of 9700
-Urinalysis shows +3 occult blood, 26-30 RBC
-IV fluids
-Could possibly be related to seizure medications/dehydration,
# Transaminitis secondary to rhabdomyolysis
-Liver ultrasound shows mild diffuse liver disease
-Hepatitis panel pending
Developmental delay, nonverbal at baseline
BPH
Seizure history
-Continue clobazam
-Continue felbamate
-Continue zonisamide
Full code
DVT prophylaxis�heparin
Pur�ed diet
--- NOTE | 2023-12-27 01:00 | PTCARENOTE ---
pt arrived to floor via stretcher from the ED. Pt with developmental delays, non verbal at baseline, but able to say some words, nods head appropriately, and follows commands. Mother at bedside to assist with admit. HR Reg, lungs clear. POX 98% on
RA. + bowel, round abd. Bladder scanned pt for 735ml. Pt unable to use urinal. Pt OOB x 2 to bathroom, pt able to void sitting on toilet. Pt refusing to wear socks, rips them off. Pt reports abd pain/ tenderness, unable to describe. + pedal pulses
present. skin intact. Left AC int infusing NSS@150ml/hr as ordered. Bed Alarm/ med sitter in place for pt safety. pt sitting up in bed playing on IPAD. Will continue to monitor.
[2023-12-27] MEDS: NSS 1000 IV ×3 (06:01→20:16)
[2023-12-27 07:20] LABS: % Basophils 0.6 % (0-2); % Eosinophils 2.9 % (0-6); % Immature Granulocytes 0.2 % (0-0.5); % Lymphocytes 24.7 % (20.5-51.1); % Monocytes 8.9 % (1.7-9.3); % Neutrophils 62.7 % (42.2-75.2); Absolute Eosinophils 0.2 10^3/uL (0-0.7); Absolute Lymphocytes 1.3 10^3/uL (1.2-3.4); Absolute Monocytes 0.5 10^3/uL (0.1-0.6); Absolute Neutrophils 3.2 10^3/uL (1.4-6.5); Mean Corpuscular Hgb 34.5 pg (27.0-31.0); Mean Corpuscular Volume 98.5 fL (80.0-94.0); Mean Platelet Volume 9.3 fL (7.4-10.4); Nucleated Red Blood Cells % 0 % (-); Platelet Count 174 10^3/uL (130-400); Red Blood Cell Count 4.06 10^6/uL (4.70-6.10); Red Cell Dist. Width 12.1 % (11.5-14.5); White Blood Cell Count 5.2 10^3/uL (4.8-10.8)
[2023-12-27 07:39] VITALS: BP 113/71
[2023-12-27 07:49] LABS: ALT (SGPT) 88 U/L (0-50); AST (SGOT) 259 U/L (17-59); Albumin 3.5 g/dl (3.5-5.0); Alkaline Phosphatase 66 U/L (38-126); Blood Urea Nitrogen 18 mg/dl (9-20); Calcium 8.6 mg/dl (8.4-10.2); Carbon Dioxide 22 mmol/L (22-30); Chloride 109 mmol/L (98-107); Estimated Creatinine Clearance 83 ml/min; Glucose 85 mg/dl (70-99); Potassium 3.7 mmol/L (3.5-5.1); Sodium 142 mmol/L (135-145); Total Bilirubin 0.4 mg/dl (0.2-1.3); eGFR > 60.00
[2023-12-27] MEDS: NON-FORMULARY ITEM 1 UNIT PO (07:54)
[2023-12-27] MEDS: NON-FORMULARY ITEM 800 MG PO ×2 (07:54→20:16)
[2023-12-27] MEDS: MIRALAX 17 GRAMS PO (07:59)
[2023-12-27] MEDS: REFRESH EYE DROPS (PF) 1 DROPS BOTH EYES (07:59)
[2023-12-27] MEDS: THERAGRAN 1 TABLET PO (07:59)
[2023-12-27 08:02] LABS: Creatine Phosphokinase 5816 U/L (55-170)
[2023-12-27] MEDS: VITAMIN C 500 MG PO (08:08)
[2023-12-27] MEDS: NON-FORMULARY ITEM 1.5 UNIT PO ×2 (08:09→20:17)
[2023-12-27] MEDS: HEPARIN 5000 UNITS SC (08:14)
--- NOTE | 2023-12-27 09:04 | W.PN.HOSP.TC ---
Today's Communication/Plan
-
see bold
Assessment / Plan
Assessment / Plan
HPI: 43-year-old male past medical history of development delay nonverbal at baseline, BPH, seizures, presenting from detention with few isolated episodes of bloody urine over the past few months. He saw Dr. Osorio of urology who wanted to check
blood work before considering bladder biopsy. He was sent in for abnormal LFTs.
History is obtained from patient's mother at bedside who states that patient has been feeling more tired for the past several weeks, eating less.
He has a history of seizure disorder and his last seizure was 4 months ago secondary to fever. He has been on the same seizure medications for several years without any recent changes in the doses.
#Acute nontraumatic rhabdomyolysis
Improving, continue IV fluids, trend CK
#Transaminitis
From rhabdomyolysis
Liver ultrasound with diffuse disease, hepatitis panel pending
Improving, avoid hepatotoxic drugs, trend LFTs
Developmental delay, nonverbal at baseline
BPH
Seizure history
-Continue clobazam
-Continue felbamate
-Continue zonisamide
DVT prophylaxis�subcu Lovenox
Full code
Updated mom at bedside 12/26
Total time spent to see the patient on the floor, examine the patient, review data and lab results, discuss treatment plan with patient, nursing staff around 40 minutes.
Physical Exam
General: No acute distress, sleeping
HEENT: Normocephalic, Atraumatic
Respiratory: Clear to Auscultation bilaterally
Cardiac: Normal S1/S2, Regular Rate and Rhythm
GI: Soft, Nontender, Nondistended, Normal Bowel Sounds
Extremities: No Clubbing, Cyanosis, or Edema
Anticipated Discharge: 24 - 48 hours
Subjective/Interval History
-
Date of Service: December 27, 2023
Patient resting quietly. No fever, no vomiting.
Objective Data
-
Labs:
Laboratory Results
12/26/23 12/27/23
20:32 07:00
WBC 5.2
Hgb 14.0
Hct 40.0
Plt Count 174
Sodium 139 142
Potassium 4.2 3.7
Chloride 104 109 H
Carbon Dioxide 25 22
BUN 28 H 18
Creatinine 1.2 0.9
Glucose 101 H 85
Calcium 9.3 8.6
Total Bilirubin 0.5 0.4
AST 400 H 259 H
ALT 115 H 88 H
Alkaline Phosphatase 72 66
Vital Signs:
Vital Signs
Temp Pulse Resp BP Pulse Ox
98.1 F 66 17 113/71 97
12/27/23 07:39 12/27/23 07:39 12/27/23 07:39 12/27/23 07:39 12/27/23 07:39
I&O
12/26/23 12/27/23 12/28/23
06:59 06:59 06:59
Intake Total 900 / 900
Balance 900 / 900
--- NOTE | 2023-12-27 11:25 | CM ---
Patient seen asleep, on medsitter, initial assessment completed by patients mother, Padmini, bedside. Per patients mother, patient resides at [facility] in [place] ([facility] client), has been there for about two
years. Patients mother reports it is not the best home but has been struggling to find a new home. Patients mother reports she cared for patient at home for 40 years, had a hard time caring for him at home. Patients mother confirms PCP Dima
Tash, pharmacy [facility] in [place], confirmed prescription drug coverage. CM placed call to [phone], informed patient is a [facility] becerril- transferred to [facility]. CM spoke with [facility], Martita aGmez
([phone]) confirmed can accept patient upon discharge, requested discharge paperwork faxed to same number as phone ([phone]). CM will continue to follow for all discharge planning needs.
Plan; return to [facility] when stable, please call Martita Gamez ([phone]) upon discharge.
Fax d/c paperwork to [facility]: [phone]
[2023-12-27 15:19] VITALS: BP 108/66
[2023-12-27] MEDS: LOVENOX 40 MG SC (17:02)
[2023-12-27] MEDS: NON-FORMULARY ITEM 2 UNIT PO (20:18)
[2023-12-27 23:21] VITALS: BP 93/59
[2023-12-28] MEDS: NSS 1000 IV ×4 (02:55→23:39)
[2023-12-28 07:15] VITALS: BP 93/61
[2023-12-28 08:28] LABS: ALT (SGPT) 65 U/L (0-50); AST (SGOT) 140 U/L (17-59); Albumin 3.2 g/dl (3.5-5.0); Alkaline Phosphatase 67 U/L (38-126); Blood Urea Nitrogen 18 mg/dl (9-20); Calcium 8.6 mg/dl (8.4-10.2); Carbon Dioxide 23 mmol/L (22-30); Chloride 109 mmol/L (98-107); Estimated Creatinine Clearance 83 ml/min; Glucose 90 mg/dl (70-99); Sodium 139 mmol/L (135-145); Total Bilirubin 0.3 mg/dl (0.2-1.3); Total Protein 5.6 g/dl (6.3-8.2); eGFR > 60.00
--- NOTE | 2023-12-28 08:36 | W.PN.HOSP.TC ---
Today's Communication/Plan
-
see bold
Assessment / Plan
Assessment / Plan
HPI: 43-year-old male past medical history of development delay nonverbal at baseline, BPH, seizures, presenting from skilled nursing with few isolated episodes of bloody urine over the past few months. He saw Dr. Osorio of urology who wanted to check
blood work before considering bladder biopsy. He was sent in for abnormal LFTs.
History is obtained from patient's mother at bedside who states that patient has been feeling more tired for the past several weeks, eating less.
He has a history of seizure disorder and his last seizure was 4 months ago secondary to fever. He has been on the same seizure medications for several years without any recent changes in the doses.
#Acute nontraumatic rhabdomyolysis
CK improving at 2638, down from 5816, was 9707 upon admission
Improving, continue IV fluids, trend CK
#Transaminitis
From rhabdomyolysis
Liver ultrasound with diffuse disease, hepatitis panel pending
Improving, avoid hepatotoxic drugs, trend LFTs
#Hematuria
Appreciate urology input, for possible cystoscopy this admission
Developmental delay, nonverbal at baseline
BPH
Seizure history
-Continue clobazam
-Continue felbamate
-Continue zonisamide
DVT prophylaxis�subcu Lovenox
Full code
Updated mom at bedside 12/26, 12/27
Updated father on phone 12/27
Total time spent to see the patient on the floor, examine the patient, review data and lab results, discuss treatment plan with patient, nursing staff around 50 minutes.
Physical Exam
General: No acute distress
HEENT: Normocephalic, Atraumatic
Respiratory: Clear to Auscultation bilaterally
Cardiac: Normal S1/S2, Regular Rate and Rhythm
GI: Soft, Nontender, Nondistended, Normal Bowel Sounds
Extremities: No Clubbing, Cyanosis, or Edema
Neuro: Slow to respond, answers some questions
Anticipated Discharge: > 48 hours
Subjective/Interval History
-
Date of Service: December 28, 2023
Patient is awake, alert. Reports left wrist pain from his IV site. No fever, no vomiting.
Objective Data
-
Labs:
Laboratory Results
12/28/23
07:11
Sodium 139
Potassium 4.0
Chloride 109 H
Carbon Dioxide 23
BUN 18
Creatinine 0.9
Glucose 90
Calcium 8.6
Total Bilirubin 0.3
AST 140 H
ALT 65 H
Alkaline Phosphatase 67
Vital Signs:
Vital Signs
Temp Pulse Resp BP Pulse Ox
97.3 F 62 18 93/61 99
12/28/23 07:15 12/28/23 07:15 12/28/23 07:15 12/28/23 07:15 12/28/23 07:15
I&O
12/27/23 12/28/23 12/29/23
06:59 06:59 06:59
Intake Total 900 / 900 2160 / 2160
Balance 900 / 900 2160 / 2160
[2023-12-28 08:59] LABS: Creatine Phosphokinase 2638 U/L (55-170)
[2023-12-28] MEDS: MIRALAX 17 GRAMS PO (09:03)
[2023-12-28] MEDS: NON-FORMULARY ITEM 1 UNIT PO ×4 (09:11→19:31)
[2023-12-28] MEDS: NON-FORMULARY ITEM 800 MG PO (09:13)
[2023-12-28] MEDS: REFRESH EYE DROPS (PF) BOTH EYES (09:15)
[2023-12-28] MEDS: VITAMIN C PO (09:16)
[2023-12-28] MEDS: THERAGRAN PO (09:16)
--- NOTE | 2023-12-28 09:30 | CM ---
Patient seen at bedside, family member present. No change to discharge plan. CM will continue to follow for discharge planning needs.
Per prior CM notes; Teletype Clerk, Martita Gamez ([phone]) confirmed can accept patient upon discharge, requested discharge paperwork faxed to same number as phone ([phone]).
Plan; return to [facility] when stable, please call Martita Gamez ([phone]) upon discharge.
Fax d/c paperwork to [facility]: [phone]
--- NOTE | 2023-12-28 14:45 | PTCARENOTE ---
Patient assisted to ambulate into bathroom. Patient voided 1300 ml clear yellow urine into toilet hat. Patient assisted to return to bed. Patient's Mom bedside and functioning bed alarm and Medsitter in place.
[2023-12-28 15:20] VITALS: BP 107/72
[2023-12-28] MEDS: LOVENOX 40 MG SC (18:29)
[2023-12-28 19:12] LABS: Hepatitis B Surface Antigen Negative (Negative)
[2023-12-28 19:15] LABS: Hepatitis A IgM Antibody Negative (Negative); Hepatitis B Core Ab, IgM Negative (Negative)
[2023-12-28] MEDS: NON-FORMULARY ITEM 1 MG PO (19:31)
[2023-12-28 20:43] LABS: Hepatitis C Antibody Negative (Negative)
[2023-12-28] MEDS: ANTIFUNGAL CLEAR 1 APPLIC TOPICAL (21:49)
[2023-12-28 21:50] LABS: Hepatitis B Surface Antibody Indeterminate
[2023-12-28 23:03] VITALS: BP 105/55
[2023-12-29] MEDS: NSS 1000 IV ×4 (05:53→23:47)
[2023-12-29] MEDS: ANTIFUNGAL CLEAR 1 APPLIC TOPICAL ×2 (07:49→20:05)
[2023-12-29 07:50] VITALS: BP 92/65
[2023-12-29] MEDS: MIRALAX 17 GRAMS PO (07:50)
[2023-12-29] MEDS: VITAMIN C 500 MG PO (07:50)
[2023-12-29] MEDS: THERAGRAN 1 TABLET PO (07:50)
[2023-12-29] MEDS: REFRESH EYE DROPS (PF) 1 DROPS BOTH EYES (07:50)
[2023-12-29 07:52] LABS: Hematocrit 37.2 % (39.0-52.0); Hemoglobin 12.6 g/dL (13.0-18.0); Mean Corp Hgb Conc. 33.9 g/dL (33.0-37.0); Mean Corpuscular Volume 97.4 fL (80.0-94.0); Mean Platelet Volume 9.9 fL (7.4-10.4); Platelet Count 188 10^3/uL (130-400); Red Blood Cell Count 3.82 10^6/uL (4.70-6.10); Red Cell Dist. Width 12.1 % (11.5-14.5); White Blood Cell Count 5.9 10^3/uL (4.8-10.8)
[2023-12-29] MEDS: NON-FORMULARY ITEM 1 UNIT PO ×4 (07:59→20:03)
[2023-12-29] MEDS: NON-FORMULARY ITEM 400 MG PO ×2 (08:00→19:58)
[2023-12-29 08:44] LABS: ALT (SGPT) 55 U/L (0-50); AST (SGOT) 91 U/L (17-59); Albumin 3.3 g/dl (3.5-5.0); Alkaline Phosphatase 71 U/L (38-126); Blood Urea Nitrogen 17 mg/dl (9-20); Calcium 8.6 mg/dl (8.4-10.2); Carbon Dioxide 22 mmol/L (22-30); Chloride 107 mmol/L (98-107); Creatine Phosphokinase 1220 U/L (55-170); Estimated Creatinine Clearance 75 ml/min; Glucose 80 mg/dl (70-99); Potassium 3.9 mmol/L (3.5-5.1); Sodium 140 mmol/L (135-145); Total Bilirubin 0.4 mg/dl (0.2-1.3); Total Protein 5.8 g/dl (6.3-8.2); eGFR > 60.00
--- NOTE | 2023-12-29 09:02 | W.PN.HOSP.TC ---
Today's Communication/Plan
-
see bold
Assessment / Plan
Assessment / Plan
HPI: 43-year-old male past medical history of development delay nonverbal at baseline, BPH, seizures, presenting from care home with few isolated episodes of bloody urine over the past few months. He saw Dr. Osorio of urology who wanted to check
blood work before considering bladder biopsy. He was sent in for abnormal LFTs.
History is obtained from patient's mother at bedside who states that patient has been feeling more tired for the past several weeks, eating less.
He has a history of seizure disorder and his last seizure was 4 months ago secondary to fever. He has been on the same seizure medications for several years without any recent changes in the doses.
#Acute nontraumatic rhabdomyolysis
CK improving at 1220, was 2638, down from 5816, was 9707 upon admission
Improving, continue IV fluids, trend CK
#Transaminitis
From rhabdomyolysis
Liver ultrasound with diffuse disease, hepatitis panel pending
Improving, avoid hepatotoxic drugs, trend LFTs
# Intermittent hematuria
Appreciate urology input, for cystoscopy tomorrow
Developmental delay, nonverbal at baseline
BPH
Seizure history
-Continue clobazam
-Continue felbamate
-Continue zonisamide
DVT prophylaxis�subcu Lovenox
Full code
Updated mom at bedside 12/26, 12/27, 12/28
Updated father on phone 12/27
Called patient's PCP to give update 12/28, they did not pecan picker
Total time spent to see the patient on the floor, examine the patient, review data and lab results, discuss treatment plan with patient, nursing staff around 45 minutes.
Physical Exam
General: No acute distress
HEENT: Normocephalic, Atraumatic
Respiratory: Clear to Auscultation bilaterally
Cardiac: Normal S1/S2, Regular Rate and Rhythm
GI: Soft, Nontender, Nondistended, Normal Bowel Sounds
Extremities: No Clubbing, Cyanosis, or Edema
Neuro: Slow to respond, answers some questions
Anticipated Discharge: 24 - 48 hours
Subjective/Interval History
-
Date of Service: December 29, 2023
Patient denies pain. No fever, no vomiting.
Objective Data
-
Labs:
Laboratory Results
12/29/23
06:42
WBC 5.9
Hgb 12.6 L
Hct 37.2 L
Plt Count 188
Sodium 140
Potassium 3.9
Chloride 107
Carbon Dioxide 22
BUN 17
Creatinine 1.0
Glucose 80
Calcium 8.6
Total Bilirubin 0.4
AST 91 H
ALT 55 H
Alkaline Phosphatase 71
Vital Signs:
Vital Signs
Temp Pulse Resp BP Pulse Ox
98.4 F 77 20 92/65 98
12/29/23 07:50 12/29/23 07:50 12/29/23 07:50 12/29/23 07:50 12/29/23 07:50
I&O
12/28/23 12/29/23 12/30/23
06:59 06:59 06:59
Intake Total 2160 / 2160 4580 / 4580
Output Total 1300 / 1300
Balance 2160 / 2160 3280 / 3280
--- NOTE | 2023-12-29 12:00 | CM ---
CM reviewed chart, spoke with Vivek from [facility]. Tyeesha requesting PT/OT to be ordered for patient, TT to Hospitalist with request. [facility] requesting clinicals faxed to [phone] for review to ensure ability to accept patient.
[facility] reports patient requires 24/7 care at residential home, due to staffing, unable to accept a weekend discharge if patient is stable. [facility] requesting fax number- CM provided Case Management fax, [facility] will send discharge requests to CM,
requesting Hospitalist document 'continue all home meds' upon discharge. CM will continue to follow for all discharge planning needs.
Plan; return to [facility] when stable, please call Martita Gamez ([phone]) upon discharge. Watch fo PT/OT evals.
Fax d/c paperwork to [facility]: [phone]
[2023-12-29 15:39] VITALS: BP 80/41
[2023-12-29] MEDS: LOVENOX 40 MG SC (17:03)
[2023-12-29 23:37] VITALS: BP 116/71
[2023-12-30] VITALS (12 sets, daily range): BP systolic 89–117; BP diastolic 52–81
[2023-12-30] MEDS: NSS 1000 IV ×3 (06:14→19:26)
[2023-12-30 07:47] LABS: Hematocrit 42.4 % (39.0-52.0); Hemoglobin 14.5 g/dL (13.0-18.0); Mean Corp Hgb Conc. 34.2 g/dL (33.0-37.0); Mean Corpuscular Hgb 33.3 pg (27.0-31.0); Mean Corpuscular Volume 97.5 fL (80.0-94.0); Platelet Count 185 10^3/uL (130-400); Red Blood Cell Count 4.35 10^6/uL (4.70-6.10); Red Cell Dist. Width 11.9 % (11.5-14.5); White Blood Cell Count 7.3 10^3/uL (4.8-10.8)
[2023-12-30 08:18] LABS: ALT (SGPT) 57 U/L (0-50); AST (SGOT) 77 U/L (17-59); Albumin 3.6 g/dl (3.5-5.0); Alkaline Phosphatase 82 U/L (38-126); Blood Urea Nitrogen 19 mg/dl (9-20); Calcium 8.8 mg/dl (8.4-10.2); Carbon Dioxide 23 mmol/L (22-30); Chloride 105 mmol/L (98-107); Creatine Phosphokinase 914 U/L (55-170); Estimated Creatinine Clearance 83 ml/min; Glucose 81 mg/dl (70-99); Potassium 3.9 mmol/L (3.5-5.1); Sodium 139 mmol/L (135-145); Total Bilirubin 0.4 mg/dl (0.2-1.3); Total Protein 6.2 g/dl (6.3-8.2); eGFR > 60.00
--- NOTE | 2023-12-30 08:37 | W.IMMPOSTOP ---
Surgical Immed Post Op Note
-
Primary Surgeon:
doc
Assisting Surgeon:
Pre-op Diagnosis:
hematuria
Post-op Diagnosis:
same
Procedure Performed:
cysto/retrogrades
Anesthesia Type:
gen
Specimen / Cultures:
none
Estimated Blood Loss:
1cc
Complications:
none
Operative Findings:
no urethra
open prostatic fossa
bladder and retogrades normal
flomax and pyridium today
discharge when medically stable
communicated OR findings to mother
[2023-12-30] MEDS: NON-FORMULARY ITEM 1 UNIT PO ×4 (09:34→19:18)
[2023-12-30] MEDS: NON-FORMULARY ITEM 1 MG PO ×2 (09:35→19:17)
[2023-12-30] MEDS: FLOMAX 0.4 MG PO (09:39)
[2023-12-30] MEDS: THERAGRAN 1 TABLET PO (09:40)
[2023-12-30] MEDS: Pyridium 200 MG PO (09:40)
[2023-12-30] MEDS: VITAMIN C 500 MG PO (09:40)
[2023-12-30] MEDS: MIRALAX 17 GRAMS PO (09:43)
[2023-12-30] MEDS: REFRESH EYE DROPS (PF) BOTH EYES (09:43)
[2023-12-30] MEDS: ANTIFUNGAL CLEAR 1 APPLIC TOPICAL ×2 (10:02→19:27)
--- NOTE | 2023-12-30 10:12 | PTCARENOTE ---
pt went to OR this morning for cystoscopy. Once back in room am medications given and breakfast ordered. DR Do in to see pt and mom. Pt will stay one more night and be discharged home tomorrow.
--- NOTE | 2023-12-30 13:10 | W.PN.HOSP.TC ---
Today's Communication/Plan
-
Discharge tomorrow
Assessment / Plan
Assessment / Plan
HPI: 43-year-old male past medical history of development delay nonverbal at baseline, BPH, seizures, presenting from [facility] with few isolated episodes of bloody urine over the past few months. He saw Dr. Osorio of urology who wanted to check
blood work before considering bladder biopsy. He was sent in for abnormal LFTs.
History is obtained from patient's mother at bedside who states that patient has been feeling more tired for the past several weeks, eating less.
He has a history of seizure disorder and his last seizure was 4 months ago secondary to fever. He has been on the same seizure medications for several years without any recent changes in the doses.
#Acute nontraumatic rhabdomyolysis
CK improving at 914, 1220, was 2638, down from 5816, was 9707 upon admission
Improving, continue IV fluids, trend CK
Plan for discharge home with mom 12/30, then return to the [facility] during the week
#Transaminitis
From rhabdomyolysis
Liver ultrasound with diffuse disease, hepatitis panel pending
Improving, avoid hepatotoxic drugs, trend LFTs
# Intermittent hematuria
Appreciate urology input, 12/29 cystoscopy unremarkable
Developmental delay, nonverbal at baseline
BPH
Seizure history
-Continue clobazam
-Continue felbamate
-Continue zonisamide
DVT prophylaxis�subcu Lovenox
Full code
Updated mom at bedside 12/26, 12/27, 12/28, 12/29
Updated father on phone 12/27
Called patient's PCP to give update 12/28, they did not picking crew supervisor
Total time spent to see the patient on the floor, examine the patient, review data and lab results, discuss treatment plan with patient, nursing staff around 43 minutes.
Physical Exam
General: No acute distress
HEENT: Normocephalic, Atraumatic
Respiratory: Clear to Auscultation bilaterally
Cardiac: Normal S1/S2, Regular Rate and Rhythm
GI: Soft, Nontender, Nondistended, Normal Bowel Sounds
Extremities: No Clubbing, Cyanosis, or Edema
Neuro: Slow to respond, answers some questions
Anticipated Discharge: Within 24 hours
Subjective/Interval History
-
Date of Service: December 30, 2023
Patient seen after his cystoscopy. No fever, no vomiting.
Objective Data
-
Labs:
Laboratory Results
12/30/23
06:30
WBC Pending
Hgb Pending
Hct Pending
Plt Count Pending
Sodium Pending
Potassium Pending
Chloride Pending
Carbon Dioxide Pending
BUN Pending
Creatinine Pending
Glucose Pending
Calcium Pending
Total Bilirubin Pending
AST Pending
ALT Pending
Alkaline Phosphatase Pending
Vital Signs:
Vital Signs
Temp Pulse Resp BP Pulse Ox
98.4 F 84 18 116/71 95
12/29/23 23:37 12/29/23 23:37 12/29/23 23:37 12/29/23 23:37 12/29/23 23:37
I&O
12/29/23 12/30/23 12/31/23
06:59 06:59 06:59
Intake Total 4580 / 4580 1080 / 1080
Output Total 1300 / 1300
Balance 3280 / 3280 1080 / 1080
[2023-12-30] MEDS: LOVENOX 40 MG SC (17:19)
[2023-12-31] MEDS: NSS 1000 IV ×3 (02:26→23:11)
[2023-12-31 03:42] VITALS: BP 80/50
[2023-12-31 07:10] VITALS: BP 109/62
[2023-12-31 07:58] LABS: ALT (SGPT) 55 U/L (0-50); AST (SGOT) 58 U/L (17-59); Albumin 3.3 g/dl (3.5-5.0); Alkaline Phosphatase 62 U/L (38-126); Creatine Phosphokinase 492 U/L (55-170); Direct Bilirubin 0.1 mg/dl (0.0-0.4); Total Bilirubin 0.3 mg/dl (0.2-1.3); Total Protein 5.6 g/dl (6.3-8.2)
--- NOTE | 2023-12-31 08:40 | W.PN.HOSP.TC ---
Today's Communication/Plan
-
Discharge to the care home tomorrow
Assessment / Plan
Assessment / Plan
HPI: 43-year-old male past medical history of development delay nonverbal at baseline, BPH, seizures, presenting from care home with few isolated episodes of bloody urine over the past few months. He saw Dr. Osorio of urology who wanted to check
blood work before considering bladder biopsy. He was sent in for abnormal LFTs.
History is obtained from patient's mother at bedside who states that patient has been feeling more tired for the past several weeks, eating less.
He has a history of seizure disorder and his last seizure was 4 months ago secondary to fever. He has been on the same seizure medications for several years without any recent changes in the doses.
#Acute nontraumatic rhabdomyolysis
CK improving at 492, 914, 1220, was 2638, down from 5816, was 9707 upon admission
Improving, continue IV fluids, trend CK
Discharge to care home tomorrow
#Transaminitis
From rhabdomyolysis
Liver ultrasound with diffuse disease, hepatitis panel pending
Resolving, avoid hepatotoxic drugs, trend LFTs
# Intermittent hematuria
Appreciate urology input, 12/29 cystoscopy unremarkable
Developmental delay, nonverbal at baseline
BPH
Seizure history
-Continue clobazam
-Continue felbamate
-Continue zonisamide
DVT prophylaxis�subcu Lovenox
Full code
Updated mom at bedside 12/26, 12/27, 12/28, 12/29, 12/30
Updated father on phone 12/27
Called patient's PCP to give update 12/28, they did not lease picker
Total time spent to see the patient on the floor, examine the patient, review data and lab results, discuss treatment plan with patient, nursing staff around 38 minutes.
Physical Exam
General: No acute distress
HEENT: Normocephalic, Atraumatic
Respiratory: Clear to Auscultation bilaterally
Cardiac: Normal S1/S2, Regular Rate and Rhythm
GI: Soft, Nontender, Nondistended, Normal Bowel Sounds
Extremities: No Clubbing, Cyanosis, or Edema
Neuro: Slow to respond, answers some questions
Anticipated Discharge: Within 24 hours
Subjective/Interval History
-
Date of Service: December 31, 2023
No acute events. No fever, no vomiting.
Objective Data
-
Labs:
Laboratory Results
12/31/23
06:38
Total Bilirubin 0.3
AST 58
ALT 55 H
Alkaline Phosphatase 62
Vital Signs:
Vital Signs
Temp Pulse Resp BP Pulse Ox
97.5 F 70 18 109/62 95
12/31/23 07:10 12/31/23 07:10 12/31/23 07:10 12/31/23 07:10 12/31/23 07:10
I&O
12/30/23 12/31/23 01/01/24
06:59 06:59 06:59
Intake Total 1080 / 1080 3140 / 3140
Balance 1080 / 1080 3140 / 3140
[2023-12-31] MEDS: THERAGRAN 1 TABLET PO (08:49)
[2023-12-31] MEDS: VITAMIN C 500 MG PO (08:49)
[2023-12-31] MEDS: FLOMAX 0.4 MG PO (08:49)
[2023-12-31] MEDS: NON-FORMULARY ITEM 1 UNIT PO ×4 (08:50→20:06)
[2023-12-31] MEDS: NON-FORMULARY ITEM 1 MG PO (08:50)
[2023-12-31] MEDS: ANTIFUNGAL CLEAR 1 APPLIC TOPICAL ×2 (08:52→20:08)
[2023-12-31] MEDS: MIRALAX 17 GRAMS PO (08:52)
[2023-12-31] MEDS: REFRESH EYE DROPS (PF) BOTH EYES (08:53)
[2023-12-31 14:10] VITALS: BP 156/78; PULSE 77
[2023-12-31 14:45] VITALS: BP 156/78; PULSE 77
[2023-12-31 15:33] VITALS: BP 102/70
--- NOTE | 2023-12-31 16:00 | CM ---
CM reviewed pt with Dr Mac murphy for dc
Initial plan for pt to go home with mother today; however, mother now noting she cannot care for pt at her home this evening
Call with [facility]/long term director who was in agreement plan for home with mom ([phone]) initially
He was updated on change of plans
He requested CM contact long term nurse Vivek [phone] tomorrow to discuss dc planning
He noted Vivek will provide direction if VN vs outpt therapy scripts are needed on dc
Discharge Disposition- return [facility] long term tomorrow
[2023-12-31] MEDS: NSS IV (17:11)
[2023-12-31] MEDS: LOVENOX 40 MG SC (17:22)
[2023-12-31] MEDS: NON-FORMULARY ITEM 400 MG PO (20:05)
[2023-12-31 23:15] VITALS: BP 113/68
[2024-01-01] MEDS: NSS 1000 IV (05:38)
[2024-01-01 07:00] VITALS: BP 118/64
[2024-01-01] MEDS: ANTIFUNGAL CLEAR 1 APPLIC TOPICAL (08:35)
[2024-01-01] MEDS: FLOMAX 0.4 MG PO (08:37)
[2024-01-01] MEDS: NON-FORMULARY ITEM 400 MG PO (08:37)
[2024-01-01] MEDS: MIRALAX PO (08:38)
[2024-01-01] MEDS: NON-FORMULARY ITEM 1 UNIT PO ×2 (08:38→08:39)
[2024-01-01] MEDS: REFRESH EYE DROPS (PF) BOTH EYES ×2 (08:39→08:47)
[2024-01-01] MEDS: VITAMIN C 500 MG PO (08:40)
[2024-01-01] MEDS: THERAGRAN 1 TABLET PO (08:40)
--- NOTE | 2024-01-01 08:44 | W.PN.HOSP.TC ---
Addendum entered and electronically signed by Maryam Houston MD 01/01/24 14:06:
total DC time 38 min
Original Note:
Today's Communication/Plan
-
see A/P
DC today back to [facility]
Assessment / Plan
Assessment / Plan
HPI: 43-year-old male past medical history of development delay nonverbal at baseline, BPH, seizures, presenting from [facility] with few isolated episodes of bloody urine over the past few months. He saw Dr. Osorio of urology who wanted to check
blood work before considering bladder biopsy. He was sent in for abnormal LFTs.
History obtained from patient's mother who stated that patient has been feeling more tired for the past several weeks, eating less.
He has a history of seizure disorder and his last seizure was 4 months ago secondary to fever. He has been on the same seizure medications for several years without any recent changes in the doses.
A/P:
# Acute nontraumatic rhabdomyolysis
CK was 9707 upon admission, improved to 492
continue IV fluids, trend CK
Discharge to [facility]
# Transaminitis, from rhabdomyolysis
Liver ultrasound with diffuse disease
hepatitis panel noted indeterminant hepatitis B surface Ab
avoid hepatotoxic drugs, trend LFTs
# Intermittent hematuria
Appreciate urology input, 12/29 cystoscopy unremarkable
# Developmental delay, nonverbal at baseline
# BPH
# Seizure history
Continue clobazam
Continue felbamate
Continue zonisamide
DVT prophylaxis�subcu Lovenox
Full code
Updated mom at bedside
Physical Exam
General: No acute distress
HEENT: Normocephalic, Atraumatic
Respiratory: Clear to Auscultation bilaterally
Cardiac: Normal S1/S2, Regular Rate and Rhythm
GI: Soft, Nontender, Nondistended, Normal Bowel Sounds
Extremities: No Clubbing, Cyanosis, or Edema
Neuro: Slow to respond, answers some questions
Anticipated Discharge: Today
Subjective/Interval History
-
Date of Service: January 01, 2024
Objective Data
-
Vital Signs:
Vital Signs
Temp Pulse Resp BP Pulse Ox
36.5 C 78 18 113/68 97
12/31/23 23:15 12/31/23 23:15 12/31/23 23:15 12/31/23 23:15 12/31/23 23:15
I&O
12/31/23 01/01/24 01/02/24
06:59 06:59 06:59
Intake Total 3140 / 3140 2200 / 2200
Balance 3140 / 3140 2200 / 2200
Review of Systems
-
Unable to obtain full review of systems at this time due to: Patient Non-verbal
Data Reviewed
-
Labs: Labs Reviewed by me
--- NOTE | 2024-01-01 09:22 | CM ---
Addendum entered by Zenia Cruz 01/01/24 14:57:
CM spoke Vivek several times from [facility], requesting on discharge paperwork to document 'return to previous diet', also requesting [facility] information. CM re-faxed discharge paperwork. IMM reviewed with patients mother, signed, placed in chart.
Addendum entered by Zenia Cruz 01/01/24 10:34:
CM placed call to patients mother, reports facility will provide transportation around 2:00 p.m. CM discussed PT recommendation of home health, patients mother agreeable to referral to [facility]. Patients mother will be here at Hospital prior to
patients discharge.
Original Note:
CM spoke with Vivek from [facility] [place] requesting updated clinicals, PT notes faxed to [phone], requesting the diagnostic code be sent with any new medication to [facility], requesting 'continue all home medications'
documented in discharge summary. TT to Hospitalist with facility request. CM will discuss home health agencies with patient/mother. CM will continue to follow for all discharge planning needs.
Plan; return to [facility]
Fax d/c paperwork to [facility]: [phone]
[2024-01-01] MEDS: AFLURIA (36 mos+) 2024-2025 FORMULA 0.5 ML IM (09:29)
[2024-01-01 09:30] LABS: Creatine Phosphokinase 408 U/L (55-170)
[2024-01-01 12:27] VITALS: BP 107/57
[2024-01-01] MEDS: NSS IV (12:52)
--- NOTE | 2024-01-01 13:47 | W.DCSUMMARY ---
Discharge Summary
Discharge Data
Date of Admission: 12/26/23
Date of Discharge: 01/01/24
-
Pending Results: No
Hospital Course
Principal Diagnosis:
Transaminitis due to from rhabdomyolysis (acute nontraumatic rhabdomyolysis)
Intermittent hematuria
Chronic Diagnoses:�
Developmental delay, nonverbal at baseline
Benign prostate hypertrophy
History of seizure on clobazam, felbamate, zonisamide
Consultations:�
Urology
Procedures:�
12/29 cystoscopy unremarkable
Clinical course:�
This is a 43-year-old male with past medical history as stated above, who presented from his assisted with abnormal blood work (elevated LFT).
He also has been experiencing isolated episodes of bloody urine and follows with Dr Osorio outpatient.
Problem 1:
Transaminitis due to from rhabdomyolysis (acute nontraumatic rhabdomyolysis).
His CK was at 9707 upon admission, which improved to 400 on the day of discharge.
His rhabdomyolysis was treated with IVF.
His LFT also trended down with resolution of his rhabdomyolysis.
His liver ultrasound noted diffuse disease.
His hepatitis panel showed indeterminant hepatitis B surface Ab, otherwise unrevealing.
Problem 2:
Intermittent hematuria
His cystoscopy on 12/29 was unremarkable.
As for the rest of his medical problems, they were stable during his hospital stay.
Discharge Plan
-
Patient Disposition: Home (Routine Discharge)
Discharge Diagnosis/Procedures: Acute nontraumatic rhabdomyolysis, transaminitis, intermittent hematuria
Condition: Good
Diet: Other diet
Additional Diets: Pur�ed diet
Activity: As tolerated
Referrals:
Dima Bianchi MD [Family Provider] - in one week
Additional Discharge Medication Instructions: Continue Flomax that was started this admission for your BPH.
Continue all home medications.
Prescriptions:
New
tamsulosin [Flomax] 0.4 mg capsule
0.4 mg PO DAILY Qty: 30 0RF
Rx Instructions:
N40.0
Continued
acetaminophen [Tylenol] 325 mg Tablet
650 mg PO Q6HPRN PRN (Reason: mild pain/temp >100.4)
felbamate [Felbatol] 400 mg Tablet
800 mg PO BID
therapeutic multivitamin Tablet
1 tab PO DAILY
zonisamide [Zonegran] 100 mg Capsule
200 mg PO BID
ascorbic acid (vitamin C) [Vitamin C] 500 mg Tablet
500 mg PO DAILY
fluticasone propionate 50 mcg/actuation [place],Suspension
1 spray INTRANASAL HS
clobazam [Onfi] 20 mg Tablet
30 mg PO BID
polyethylene glycol 3350 17 gram Powder In Packet
17 g PO DAILY Qty: 30 0RF
melatonin 3 mg Tablet
3 mg PO HSPRN PRN (Reason: sleep)
dextromethorphan-guaifenesin 10-100 mg/5 mL Syrup
10 ml PO Q4HPRN PRN (Reason: cough)
carboxymethylcellulose sodium [Refresh Tears] 0.5 % Drops
1 drp BOTH EYES DAILY
clotrimazole 1 % Cream
1 applic TOPICAL BID
Rx Instructions:
for 14 days, starting 12/21/23
Discharge Orders:
Discharge Patient (As Directed); Ordered 01/01/24
Ordered By: Maryam Houston
Discharge Date and Time
Print Language: DANISH
== END 2024-01-01 14:46 | disposition home or self-care (01) | DRG 696 ==
LOC: 4 WEST ACU 22:44
PROVIDERS: Family Medicine; ADMITTING PHYSICIAN Hospitalist; ATTENDING PHYSICIAN Internal Medicine; EMERGENCY PHYSICIAN Emergency Medicine; FAMILY PHYSICIAN Internal Medicine; OTHER PHYSICIAN Specialist
PROC: 0T9B8ZZ Drainage of Bladder, Via Natural or Artificial Opening Endoscopic (ICD-10-PCS; 2023-12-30)
DX: R31.29 Other microscopic hematuria (principal); M62.82 Rhabdomyolysis; K76.9 Liver disease, unspecified; G40.909 Epilepsy, unspecified, not intractable, without status epilepticus; N40.0 Benign prostatic hyperplasia without lower urinary tract symptoms; R62.50 Unspecified lack of expected normal physiological development in childhood; R74.01 Elevation of levels of liver transaminase levels; R79.89 Other specified abnormal findings of blood chemistry; Z79.899 Other long term (current) drug therapy
CPT/HCPCS: 36415; 74420; 76000; 76700; 80048; 80053; 80076; 80143; 82550; 83735; 84100; 85025; 85027; 85610; 86705; 86706; 86709; 86803; 87070; 87340; 90686; 96360; 96361; 97116; 97163; 97167; 99285; C1758; C1894; G0008

== ENCOUNTER → 2024-06-13 08:30 | Outpatient (REF) | payer MEDICARE, MEDICAID, SELFPAY ==
[2024-06-13 09:57] LABS: % Basophils 0.6 % (0-2); % Eosinophils 1.7 % (0-6); % Lymphocytes 34.9 % (20.5-51.1); % Monocytes 8.6 % (1.7-9.3); % Neutrophils 54.2 % (42.2-75.2); Absolute Eosinophils 0.1 10^3/uL (0-0.7); Absolute Lymphocytes 1.3 10^3/uL (1.2-3.4); Absolute Monocytes 0.3 10^3/uL (0.1-0.6); Hemoglobin 14.3 g/dL (13.0-18.0); Mean Corp Hgb Conc. 33.3 g/dL (33.0-37.0); Mean Corpuscular Hgb 34.1 pg (27.0-31.0); Mean Corpuscular Volume 102.6 fL (80.0-94.0); Mean Platelet Volume 9.9 fL (7.4-10.4); Nucleated Red Blood Cells % 0 % (-); Platelet Count 205 10^3/uL (130-400); Red Blood Cell Count 4.19 10^6/uL (4.70-6.10); Red Cell Dist. Width 12.5 % (11.5-14.5); White Blood Cell Count 3.6 10^3/uL (4.8-10.8)
[2024-06-13 10:33] LABS: ALT (SGPT) 25 U/L (0-50); AST (SGOT) 31 U/L (17-59); Alkaline Phosphatase 67 U/L (38-126); Blood Urea Nitrogen 22 mg/dl (9-20); Calcium 9.3 mg/dl (8.4-10.2); Carbon Dioxide 26 mmol/L (22-30); Chloride 105 mmol/L (98-107); Glucose 83 mg/dl (70-99); HDL Cholesterol 96 mg/dl; LDL Cholesterol, Calculated 97 mg/dl; Potassium 4.1 mmol/L (3.5-5.1); Sodium 140 mmol/L (135-145); Total Bilirubin 0.6 mg/dl (0.2-1.3); Total Cholesterol 203 mg/dl (50-199); Total Protein 7.2 g/dl (6.3-8.2); Triglyceride 54 mg/dl (10-149); Very Low Density Lipoprotein 10 mg/dl (0-30); eGFR > 60.00
[2024-06-13 11:57] LABS: Albumin 4.2 g/dl (3.5-5.0)
[2024-06-15 10:21] LABS: Quantiferon Mitogen minus NIL 9.97 IU/mL; Quantiferon NIL 0.03 IU/mL; Quantiferon TB Gold Plus Negative (Negative)
== END ==
LOC: REG 08:30
PROVIDERS: ATTENDING PHYSICIAN Psychiatry & Neurology Neurology; FAMILY PHYSICIAN Internal Medicine
DX: G40.909 Epilepsy, unspecified, not intractable, without status epilepticus (principal); Z83.3 Family history of diabetes mellitus; E78.5 Hyperlipidemia, unspecified; Z11.1 Encounter for screening for respiratory tuberculosis; G40.814 Lennox-Gastaut syndrome, intractable, without status epilepticus; R73.9 Hyperglycemia, unspecified
CPT/HCPCS: 36415; 80053; 80061; 83036; 84443; 85025; 86480